=== PATIENT | male | born 1960 | race African-American/Black ===

== ENCOUNTER 2016-05-15 10:51 | Emergency (ER) | payer OTHER ==
[~2016-05-15] VITALS: Ht 182.9 cm; Wt 82.6 kg
[~2016-05-15 10:51] MED LIST: IBUPROFEN600 MG ORAL; KEFLEX500 MG ORAL; NKM; NORCO 5-325 TA1 EACH ORAL
[2016-05-15 11:10] VITALS: BP 122/67
[2016-05-15 11:27] VITALS: BP 122/67
[2016-05-15] MEDS ORDERED: Lidocaine 2% Visc 15ml soln ORAL ONE (12:15)
[2016-05-15] MEDS ORDERED: Mylanta II UD 30ml ORAL ONE (12:15)
[2016-05-15] MEDS ORDERED: Dicyclomine HCl 10mg/5ml oral soln ORAL ONE (12:15)
--- NOTE | 2016-05-15 12:41 | Emergency Room Report ---
History of Present Illness General Chief Complaint: General Complaint Source: Patient Present Illness HPI Pt left before being seen. Allergies: Coded Allergies: PENICILLINS (Unverified Allergy, Unknown, 05/18/15) Nursing Documentation-[facility] Past Medical History: No Stated History Physical Exam Vital Signs Date Time Temp Pulse Resp B/P Pulse Ox O2 Delivery O2 Flow Rate FiO2 05/15/16 11:10 98.1 58 18 122/67 100 Room Air Medical Decision Making PA Attestation Dr. Farley is my supervising Physician whom patient management has been discussed with. ER Course Pt left before being seen. Last Vital Signs Date Time Temp Pulse Resp B/P Pulse Ox O2 Delivery O2 Flow Rate FiO2 05/15/16 11:10 98.1 58 18 122/67 100 Room Air Disposition: LEFT W/OUT BEING SEEN Referrals: [facility] (PCP) Nichelle Hough May 15, 2016 12:41
== END 2016-05-15 13:00 | disposition left against medical advice (07) ==
LOC: EMR 12:23
DX: Z53.21 Procedure and treatment not carried out due to patient leaving prior to being seen by health care provider (principal); Z88.0 Allergy status to penicillin
CPT/HCPCS: 99281

== ENCOUNTER 2016-05-31 14:06 | Emergency (ER) | payer MEDICAID, OTHER ==
[~2016-05-31] VITALS: Ht 182.9 cm; Wt 83.9 kg
[2016-05-31] MEDS ORDERED: MELOXICAM7.5 MG PO (14:24)
[2016-05-31] MEDS ORDERED: NORCO 5-325 TA1 EACH ORAL (14:24)
[2016-05-31] MEDS ORDERED: IBUPROFEN600 MG ORAL (14:24)
[2016-05-31] MEDS ORDERED: GABAPENTIN300 MG ORAL (14:24)
[2016-05-31 14:25] VITALS: BP 128/79
[2016-05-31] MEDS ORDERED: Lidocaine 2% Visc 15ml soln ORAL ONE (14:45)
[2016-05-31] MEDS ORDERED: Mylanta II UD 30ml ORAL ONE (14:45)
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
[2016-05-31] MEDS ORDERED: CYCLOBENZAPRINE10 MG ORAL (15:27)
[2016-05-31] MEDS ORDERED: ZANTAC150 MG ORAL (15:27)
[2016-05-31 15:37] VITALS: BP 121/75
[2016-05-31 15:40] VITALS: BP 121/75
--- NOTE | 2016-05-31 16:12 | Diagnostic Imaging Report ---
Indication: Neck Pain Findings: 3 views of the cervical spine were obtained. Narrowing of the C5-6 disc and endplate spurring noted. Open-mouth view is negative. There is no fracture or malalignment seen. No soft tissue swelling is present. Impression: No acute injury
== END 2016-05-31 15:40 | disposition home or self-care (01) ==
LOC: EMR 14:46
DX: S16.1XXA Strain of muscle, fascia and tendon at neck level, initial encounter (principal); V89.2XXA Person injured in unspecified motor-vehicle accident, traffic, initial encounter; Y93.9 Activity, unspecified; Y92.9 Unspecified place or not applicable; K21.9 Gastro-esophageal reflux disease without esophagitis
CPT/HCPCS: 72040; 99284

== ENCOUNTER 2016-06-14 07:35 | Emergency (ER) | payer MEDICAID ==
[~2016-06-14] VITALS: Ht 180.3 cm; Wt 82.6 kg
[~2016-06-14 07:35] MED LIST changes: +CYCLOBENZAPRINE10 MG ORAL; +GABAPENTIN300 MG ORAL; +MELOXICAM7.5 MG PO; +ZANTAC150 MG ORAL
[2016-06-14] MEDS ORDERED: Mylanta II UD 30ml ORAL ONE (08:00)
[2016-06-14] MEDS ORDERED: Pantoprazole Inj IV ONE (08:00)
--- NOTE | 2016-06-14 08:04 | Emergency Room Report ---
History of Present Illness General Chief Complaint: Chest Pain Source: Patient Present Illness HPI 56YOM walk-in with 2 days epigastric pain radiating to "clavicles" assoc with "right sided swelling" (pointing to right rib cage) and decreased appetite. pain worse with lying down, eating. Patient under considerable stress, states his cousin was just buried yesterday. Known history of suspected GERD but never had endoscopy/colonoscopy. States missed PMD appt recently. Denies assoc nausea/vomiting, diarrhea, fever/chills. Smokes marijuana. +ETOH. Denies drug use. Per EMR, was here mid-May and end may for similar complaints. left before being seen mid-May. End may was given Rx Pepcid, has been taken. No imaging, blood work done at that time. Allergies: Coded Allergies: PENICILLINS (Unverified Allergy, Unknown, 05/18/15) Patient History Past Medical History: none Past Surgical History: none Pertinent Family History: none Social History: Reports: alcohol use, smoking Nursing Documentation-PMH Past Medical History: No Stated History Review of Systems All Other Systems: negative except mentioned in HPI Physical Exam Vital Signs Date Time Temp Pulse Resp B/P Pulse Ox O2 Delivery O2 Flow Rate FiO2 06/14/16 07:36 97.5 76 24 135/83 100 Room Air Sp02 EP Interpretation: reviewed, normal General Appearance: normal inspection, well appearing, alert, GCS 15, non-toxic , mild distress, other - very anxious appearing, writhing on stretcher Head: normocephalic, atraumatic Eyes: bilateral eye EOMI, bilateral eye PERRL ENT: normal ENT inspection, hearing grossly normal, normal voice Neck: normal inspection, full range of motion, supple, no bony tend Respiratory: normal inspection, lungs clear, normal breath sounds, no respiratory distress, no retraction, no wheezing Cardiovascular #1: regular rate, rhythm, no edema Gastrointestinal: normal inspection, normal bowel sounds, soft, no mass, no organomegaly, no guarding, no hernia, no pulsatile mass, no rebound, other - hyperasthesia to palpation of epigastrium Genitourinary: no CVA tenderness Musculoskeletal: normal inspection, back normal, normal range of motion, Bernie' s Sign negative Neurologic: normal inspection, alert, oriented x3, responsive, sap solutions architect III-XII nml as tested, motor strength/tone normal, speech normal Psychiatric: normal inspection, judgement/insight normal, mood/affect normal Skin: normal inspection, normal color, no rash Lymphatic: normal inspection Medical Decision Making Diagnostic Impression: Primary Impression: Epigastric pain Additional Impression: Anxiety ER Course 56YOM with epigastric pain for 2 days. VSS. Afebrile. Dramatic, anxious Hyperasthesia to palpation of abdomen DDx includes gastritis, bj, ACS, MSK PLAN: Ecg, labs, CXR, GI cocktail, reassess EKG Diagnostic Results Rate: normal Rhythm: NSR ST Segments: no acute changes ASA given to the pt in ED: No Rhythm Strip Diag. Results EP Interpretation: yes Rate: 80 Rhythm: NSR, no PVC's, no ectopy Chest X-Ray Diagnostic Results EP Interpretation: Yes Findings: no consolidation, no effusion, no pneumothorax, no acute cardiopulmonary disease Number of Views: 1 Reevaluation Time: 08:30 Last Vital Signs Date Time Temp Pulse Resp B/P Pulse Ox O2 Delivery O2 Flow Rate FiO2 06/14/16 07:55 76 24 Room Air 06/14/16 07:36 97.5 135/83 100 Status: improved Reevaluation Impression Labs: H&H stable. Troponin 0. No leuks. Lipase normal. No other metabolic derangment CXR: No perforation. No PNA. Epigastric pain Likely acid reflux, gerd. No perforation on CXR Serial abd exam benign for focal ttp Unlikely acute bacterial or surgical process requiring additional evaluation or admission Refilled pepcid Advised GI referral for endoscopy there is also a significant anxiety component of patient's presentation given recent life stressors. Will Rx ativan for short-course as needed. Disposition: HOME, SELF-CARE Scripts Methocarbamol* (ROBAXIN-750*) 750 Mg Tablet 750 MG PO TID for muscle pain, #30 TAB 0 Refills Prov: HONG HERNANDEZ M.D. 06/14/16 Lorazepam* (ATIVAN*) 0.5 Mg Tablet 0.5 MG ORAL once daily for anxiety for 7 Days, #7 TAB Prov: HONG HERNANDEZ M.D. 06/14/16 Famotidine (PEPCID) 20 Mg Tablet 20 MG ORAL BID for 30 Days, #60 TAB 0 Refills Prov: HONG HERNANDEZ M.D. 06/14/16 HONG HERNANDEZ M.D. Jun 14, 2016 08:04
[2016-06-14 08:11] LABS: BASOPHILS % (AUTO) 1.3 % (0.0-2.0); EOSINOPHILS % (AUTO) 4.9 % (0.0-3.0); LYMPHOCYTES % (AUTO) 21.3 % (20.0-45.0); MEAN CORPUSCULAR HGB CONC 31.7 G/DL (32.0-36.0); MEAN CORPUSCULAR VOLUME 85 FL (80-99); MEAN PLATELET VOLUME 9.6 FL (6.5-10.1); MONOCYTES % (AUTO) 7.3 % (1.0-10.0); NEUTROPHILS % (AUTO) 65.2 % (45.0-75.0); PLATELET COUNT 221 K/UL (150-450); RED BLOOD COUNT 4.92 M/UL (4.70-6.10); RED CELL DISTRIBUTION WIDTH 13.1 % (11.6-14.8); WHITE BLOOD COUNT 6.6 K/UL (4.8-10.8)
--- NOTE | 2016-06-14 08:19 | Diagnostic Imaging Report ---
Indication: Chest pain Technique: Single portable AP view of the chest. Findings: Comparison: 05/18/15 The bones and extra pulmonary soft tissues, cardiomediastinal silhouette, pulmonary vasculature and parenchyma, and pleural surfaces are unremarkable. IMPRESSION: Negative portable AP chest, unchanged.
[2016-06-14 08:24] LABS: ALANINE AMINOTRANSFERASE 9 U/L (3-41); ALBUMIN/GLOBULIN RATIO 1.4 (1.0-2.7); ANION GAP 10 (5-15); ASPARTATE AMINO TRANSFERASE 17 U/L (5-40); CALCIUM 9.4 mg/dL (8.6-10.2); CARBON DIOXIDE 29 mEQ/L (20-30); CHLORIDE 98 mEQ/L (98-107); CREATININE 1.1 mg/dL (0.7-1.2); GLOMERULAR FILTRATION RATE > 60 mL/min (>60); HEMOLYSIS 2; LIPASE 25 U/L (< 60); POTASSIUM 4.1 mEQ/L (3.4-4.9); SODIUM 137 mEQ/L (135-145); TOTAL PROTEIN 7.7 g/dL (6.6-8.7)
[2016-06-14 08:26] LABS: TROPONIN I < 0.30 ng/mL (<=0.30)
[2016-06-14 08:32] VITALS: BP 135/83
[2016-06-14] MEDS ORDERED: PEPCID20 MG ORAL (08:46)
[2016-06-14] MEDS ORDERED: ATIVAN0.5 MG ORAL (08:46)
[2016-06-14] MEDS ORDERED: ROBAXIN-750750 MG PO (08:46)
[2016-06-14 08:55] VITALS: BP 123/91
--- NOTE | 2016-06-17 13:44 | Cardiology Report ---
APPROVED REPORT EKG Measurement Heart [id number] Normal sinus rhythm Normal ECG
== END 2016-06-14 08:55 | disposition home or self-care (01) ==
LOC: EMR 07:59
DX: R10.13 Epigastric pain (principal); F41.9 Anxiety disorder, unspecified; Z88.0 Allergy status to penicillin; F17.200 Nicotine dependence, unspecified, uncomplicated; F12.10 Cannabis abuse, uncomplicated
CPT/HCPCS: 36415; 71010; 80053; 83690; 84484; 85025; 93005; 96374; 99284; C9113

== ENCOUNTER 2016-06-26 20:37 | Emergency (ER) | payer MEDICAID, OTHER ==
[~2016-06-26] VITALS: Ht 182.9 cm; Wt 77.1 kg
[~2016-06-26 20:37] MED LIST changes: +ATIVAN0.5 MG ORAL; +PEPCID20 MG ORAL; +ROBAXIN-750750 MG PO
[2016-06-26] MEDS ORDERED: Mylanta II UD 30ml ORAL ONE (21:45)
[2016-06-26] MEDS ORDERED: Lidocaine 2% Visc 15ml soln ORAL ONE (21:45)
--- NOTE | 2016-06-26 22:05 | Emergency Room Report ---
History of Present Illness General Chief Complaint: Abdominal Pain Source: Patient Present Illness HPI Is a 56-year-old male with a history of alcohol abuse. He presents with chief complaint of epigastric pain. He said his been ongoing for 2 weeks. Worse with movement. Worse with coughing. Pain a 10 out of 10. No nausea no vomiting. The second complaint is that he has urinary frequency. No discharge. Onset for last couple days. Denies any fever or chills. Denies any discharge. Allergies: Coded Allergies: PENICILLINS (Unverified Allergy, Unknown, 05/18/15) Patient History Past Medical History: see triage record, old chart reviewed Past Surgical History: other Pertinent Family History: none Social History: Reports: alcohol use Immunizations: other Reviewed Nursing Documentation: PMH: Agreed, PSxH: Agreed Review of Systems Eye: Denies: blurred vision, eye pain ENT: Denies: ear pain, nose congestion, throat swelling Respiratory: Denies: cough, shortness of breath Cardiovascular: Denies: chest pain, palpitations Gastrointestinal: Reports: abdominal pain, Denies: diarrhea, nausea, vomiting Musculoskeletal: Denies: back pain, joint pain Skin: Denies: rash Neurological: Denies: headache, numbness Endocrine: Denies: increased thirst, increased urine Hematologic/Lymphatic: Denies: easy bruising All Other Systems: negative except mentioned in HPI Physical Exam Vital Signs Date Time Temp Pulse Resp B/P Pulse Ox O2 Delivery O2 Flow Rate FiO2 06/26/16 20:58 98.1 79 18 146/84 100 vitals normal Sp02 EP Interpretation: reviewed, normal General Appearance: well appearing, no apparent distress, alert Head: normocephalic, atraumatic Eyes: bilateral eye EOMI, bilateral eye PERRL ENT: hearing grossly normal, normal pharynx Neck: full range of motion, supple, no meningismus Respiratory: chest non-tender, lungs clear, normal breath sounds Cardiovascular #1: regular rate, rhythm, no murmur Gastrointestinal: normal bowel sounds, no mass, no organomegaly, no bruit, non- distended, tenderness - epigastric Musculoskeletal: back normal, gait/station normal, normal range of motion Psychiatric: mood/affect normal Skin: warm/dry Medical Decision Making Diagnostic Impression: Primary Impression: Abdominal pain of unknown etiology Additional Impression: Drug-seeking behavior ER Course Patient presents with epigastric abdominal pain. He said he never had any workup for this. Never been to the hospital for this. I pointed out to him that he was here last week and had normal blood work and CT scan. He's been here for the same thing before. He keep asking for IV pain medication. I told patient that we'll hold off and checked his urine for infection first. At this point he got angry and got up and left. He is competent to make that decision. I see no evidence of acute abdomen or obstruction. Last Vital Signs Date Time Temp Pulse Resp B/P Pulse Ox O2 Delivery O2 Flow Rate FiO2 06/26/16 20:58 98.1 79 18 146/84 100 Status: improved Disposition: AGAINST MEDICAL ADVICE Condition: Stable ESTHER MERCER M.D. Jun 26, 2016 22:05
[2016-06-26 22:06] VITALS: BP 143/87
[2016-06-26 22:10] VITALS: BP 143/87
== END 2016-06-26 22:10 | disposition home or self-care (01) ==
LOC: EMR 21:30
DX: R10.13 Epigastric pain (principal); Z76.5 Malingerer [conscious simulation]; F10.10 Alcohol abuse, uncomplicated; Z88.0 Allergy status to penicillin
CPT/HCPCS: 99282

== ENCOUNTER 2016-07-26 04:45 | Emergency (ER) | payer OTHER ==
[~2016-07-26] VITALS: Ht 182.9 cm; Wt 78.9 kg
--- NOTE | 2016-07-26 05:20 | Emergency Room Report ---
History of Present Illness General Chief Complaint: Chest Pain Source: Patient Present Illness HPI Is a 56-year-old male with a history of alcohol abuse. Has been here multiple times for different pain complaint. He tell me that he's only been to the ER once for this pain. He came in complaining of abdominal pain back pain chest pain. His been ongoing for months. No fever or chills. No nausea no vomiting. Pain is 10 out of 10 sharp in nature. Patient keeps saying that he is dying from the pain. He saw who diagnosed him with infection to his back and put him on Bactrim and gabapentin. He said is not helping. Allergies: Coded Allergies: PENICILLINS (Unverified Allergy, Unknown, 05/18/15) Patient History Past Medical History: see triage record, old chart reviewed Past Surgical History: other Pertinent Family History: none Social History: Reports: alcohol use Immunizations: other Reviewed Nursing Documentation: PMH: Agreed, PSxH: Agreed Review of Systems Eye: Denies: blurred vision, eye pain ENT: Denies: ear pain, nose congestion, throat swelling Respiratory: Denies: cough, shortness of breath Cardiovascular: Reports: chest pain, Denies: palpitations Gastrointestinal: Reports: abdominal pain, Denies: diarrhea, nausea, vomiting Musculoskeletal: Reports: back pain, Denies: joint pain Skin: Denies: rash Neurological: Denies: headache, numbness Endocrine: Denies: increased thirst, increased urine Hematologic/Lymphatic: Denies: easy bruising All Other Systems: negative except mentioned in HPI Physical Exam Vital Signs Date Time Temp Pulse Resp B/P Pulse Ox O2 Delivery O2 Flow Rate FiO2 07/26/16 04:49 97.5 81 18 101/54 98 Room Air vitals normal Sp02 EP Interpretation: reviewed, normal General Appearance: well appearing, no apparent distress, alert Head: normocephalic, atraumatic Eyes: bilateral eye EOMI, bilateral eye PERRL ENT: hearing grossly normal, normal pharynx Neck: full range of motion, supple, no meningismus Respiratory: chest non-tender, lungs clear, normal breath sounds Cardiovascular #1: regular rate, rhythm, no murmur Gastrointestinal: normal bowel sounds, no mass, no organomegaly, no bruit, non- distended, tenderness - Diffuse tenderness Musculoskeletal: back normal, gait/station normal, normal range of motion, other - There is a mass measuring abt 5 x 4 cm to the right back And midaxillary line.This along the inior rib/thoracic area dorsally. Is movable. Patient scin when I baly touch him No evidence of fluctuant. This appeared to be a lipoma. Neurologic: alert, oriented x3 Psychiatric: mood/affect normal Skin: warm/dry Medical Decision Making Diagnostic Impression: Primary Impression: Lipoma of back Additional Impression: Lytic bone lesions on xray ER Course Patient presents with diffuse pain. He is very histrionic. No evidence of ACS , PE, dissection or acute abdomen. He's been here multiple times for the same. Patient's CT suspicious for lytic lesion worse him for metastasis. Will initiate further workup. I will sign this patient out to Dr. Kapadia for final disposition. Even though he has pleural effusion breathing is stable. He has no respiratory distress. CT/MRI/US Diagnostic Results CT/MRI/US Diagnostic Results : Imaging Test Ordered: CT chest Impression read by radiologist: CT CHEST Without Contrast: Noncontrast study. Moderate size right pleural effusion and mild right lung base atelectasis. No focal consolidative process or lymphadenopathy. Scattered bilateral lung nodules, indeterminate. Multifocal lytic lesions involving the thoracic spine and sternum, concerning for metastatic/myelomatous process. Also, mixed lytic and sclerotic changes in the left scapula and proximal humerus. Correlate with clinical findings and bone scan. Normal caliber thoracic aorta. Hypodense blood pool in the seen in the setting of anemia. Partially visualized small amount of free fluid in the upper abdomen. Radiologist: Anh Torres M.D. Last Vital Signs Date Time Temp Pulse Resp B/P Pulse Ox O2 Delivery O2 Flow Rate FiO2 07/26/16 05:07 81 18 Room Air 07/26/16 04:49 97.5 101/54 98 Status: improved Disposition: ADMITTED INPATIENT Condition: Serious ESTHER MERCER M.D. July 26, 2016 05:20
[2016-07-26] MEDS ORDERED: Acetaminophen 500mg (ES) tab ORAL ONE ×2 (05:54→06:00)
[2016-07-26] MEDS ORDERED: HYDROmorphone 1mg/ml Carpuject IVP ONE (06:45)
[2016-07-26 06:51] VITALS: BP 98/78
[2016-07-26] MEDS ORDERED: TAMSULOSIN HCL0.4 MG ORAL (06:59)
[2016-07-26] MEDS ORDERED: MELOXICAM15 MG PO (06:59)
[2016-07-26] MEDS ORDERED: SULFAMETHOXAZO480 ML ORAL (06:59)
[2016-07-26 07:03] LABS: BASOPHILS % (AUTO) 1.2 % (0.0-2.0); EOSINOPHILS % (AUTO) 3.3 % (0.0-3.0); LYMPHOCYTES % (AUTO) 24.3 % (20.0-45.0); MEAN CORPUSCULAR HEMOGLOBIN 26.9 PG (27.0-31.0); MEAN CORPUSCULAR HGB CONC 33.1 G/DL (32.0-36.0); MEAN CORPUSCULAR VOLUME 81 FL (80-99); MEAN PLATELET VOLUME 9.3 FL (6.5-10.1); NEUTROPHILS % (AUTO) 64.2 % (45.0-75.0); PLATELET COUNT 187 K/UL (150-450); RED CELL DISTRIBUTION WIDTH 12.7 % (11.6-14.8); WHITE BLOOD COUNT 5.6 K/UL (4.8-10.8)
[2016-07-26 07:14] VITALS: BP 118/69
[2016-07-26 07:16] LABS: ALANINE AMINOTRANSFERASE 9 U/L (3-41); ALBUMIN/GLOBULIN RATIO 1.3 (1.0-2.7); ANION GAP 11 (5-15); ASPARTATE AMINO TRANSFERASE 16 U/L (5-40); CALCIUM 9.6 mg/dL (8.6-10.2); CARBON DIOXIDE 29 mEQ/L (20-30); CHLORIDE 95 mEQ/L (98-107); CREATININE 1.3 mg/dL (0.7-1.2); GLOMERULAR FILTRATION RATE > 60 mL/min (>60); HEMOLYSIS 6; LIPASE 24 U/L (< 60); POTASSIUM 4.8 mEQ/L (3.4-4.9); SODIUM 135 mEQ/L (135-145); TOTAL PROTEIN 7.1 g/dL (6.6-8.7)
[2016-07-26] MEDS ORDERED: VIBRAMYCIN100 MG ORAL (07:41)
[2016-07-26 07:44] LABS: APPEARANCE,URINE CLEAR; KETONES,URINE NEGATIVE (NEGATIVE); LEUKOCYTE ESTERASE ,URINE NEGATIVE (NEGATIVE); NITRITE,URINE NEGATIVE (NEGATIVE); PH,URINE 8 (4.5-8.0); PROTEIN,URINE NEGATIVE (NEGATIVE); UROBILINOGEN,URINE NORMAL MG/DL (0.0-1.0)
[2016-07-26 08:36] LABS: TROPONIN I < 0.30 ng/mL (<=0.30)
[2016-07-26 08:50] VITALS: BP 118/69
--- NOTE | 2016-07-26 09:14 | Diagnostic Imaging Report ---
Clinical Indication: MASS abdominal pain, chest pain, back pain Technique: Spiral acquisitions obtained through the chest. No IV contrast utilized, reason not stated. Multiplanar reconstructions generated. Total dose length product 718 mGycm. CTDIvol(s) 17 mGy. Dose reduction achieved using automated exposure control Comparison: None Findings:There is a small to moderate right pleural effusion. There is trace left pleural fluid. Minimal scarring or atelectasis is seen at the right lateral lung base. There is also some of atelectatic lung in the right inferior azygos esophageal recess. There is a triangular area of pleural thickening along the major fissure on the left, measuring 8 mm in diameter. There is a faint grouping of nodular opacities in the right lung periphery on image 31 series 5. Review of the sagittal reconstructions indicates that these are probably areas of thickening of the minor fissure. Otherwise, no mass, infiltrate, congestion, or nodules demonstrated. There is minimal pericardial thickening. Prominent nodes are seen in the pericardial fat. No mediastinal or hilar adenopathy otherwise. The included portions of the thyroid are unremarkable. No axillary or chest wall mass or adenopathy. There is unusual osteosclerotic appearance and periosteal thickening of the left scapula. There is also some trabecular thickening of the left humeral head There is a fat attenuation mass within the left humeral head which measures 2.8 cm in diameter, incompletely included. There is a 7 mm round osteolytic lesion within the T6 vertebral body, a tiny lesion within the T1 vertebral body, and a 3 mm lesion within the T8 vertebral body. Limited views of the upper abdomen demonstrate what appears to be mixed attenuation free intraperitoneal fluid and a 13 mm hypoattenuating lesion within segment 8 of the liver. There are prominent nodes versus small varices within the lesser sac. There is an osteolytic lesion of the L2 vertebral body. Impression: Small to moderate sized right-sided pleural effusion. Trace left pleural effusion No definite acute pulmonary parenchymal process. 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 These are also demonstrated on subsequent abdomen pelvis CT Unusual sclerotic appearance of the scapula, with extensive periosteal thickening. Findings may represent old Paget's disease. There is also some sclerosis and trabecular prominence of the left humeral head. Fat attenuation lesion within the left humeral head, may represent an intraosseous lipoma. Abdominal findings as described, discussed in detail on report of subsequent abdomen pelvis CT The CT scanner at [facility] is accredited by the [employer] and the scans are performed using protocols designed to limit radiation exposure to as low as reasonably achievable to attain images of sufficient resolution adequate for diagnostic evaluation.
[2016-07-26] MEDS ORDERED: SULFAMETHOXAZO1 EAC2 ORAL (10:41)
--- NOTE | 2016-07-26 12:17 | Diagnostic Imaging Report ---
Clinical Indication: Abdominal pain, back pain chest pain ongoing for months. Cannot attend, sharp in nature Technique: No oral contrast utilized, per emergency room physician request IV administration nonionic contrast. Venous phase spiral acquisition obtained through the abdomen and pelvis. Multiplanar reconstructions were generated. Total dose length product 752 mGycm. CTDIvol(s) 15 mGy. Dose reduction achieved using automated exposure control Comparison: None Findings: There is small amount of free intraperitoneal fluid. Inferior and posterior to the liver lateral to the spleen, and demonstrates fluid attenuation. There is higher attenuation material over the dome of the liver and the spleen, which appears to occupies the peritoneal space. However, on the left its interface with the lower attenuation fluid raises possibility that this could occupy a separate space. No free intraperitoneal air. No loculated fluid collections are evident. The appendix is not clearly identified, but there are no findings to suggest acute appendicitis. There is no evidence of diverticulosis or diverticulitis. There is mild rectal distention by feces. Distal esophagus, stomach, duodenum are unremarkable. Multiple small osteolytic lesions are demonstrated. A similar lesion is seen in the right iliac wing and iliac crest. 7 mm lesion is seen in the posterior left ischium. Multiple lesions are seen in the posterior L5 vertebral body. 15 mm lesion is seen within the L5 spinous process. At least 2 lesions are seen within the L3 vertebral body, one within the L2 vertebral body. There are also degenerative changes of the lumbar spine. Liver demonstrates normal contour. There is a somewhat irregular low-attenuation area in segment 8 anterolaterally at the periphery measuring 18 mm diameter, possibly with some peripheral nodular enhancement. There is a subcentimeter low-attenuation lesion in segment 2 too small to characterize. The gallbladder, bile ducts, pancreas, spleen, adrenals, kidneys are unremarkable. There are questionably small varices medial to the upper gastric fundus. There is equivocal mild bladder wall thickening. No pelvic mass or adenopathy. There is a small right-sided pleural effusion. Minimal scarring or atelectasis is seen in the anterolateral periphery of the right lower lobe. The lung bases are otherwise clear. Prominent nodes are seen in the pericardial fat. Nodular versus serpiginous opacities in the lesser sac medial to the upper gastric fundus may represent nodes or small unopacified varices Impression: Multiple small osteolytic bone lesions, as described. Nonspecific in appearance but suspicious for multiple osseous metastases. Trace ascites. Higher attenuation material over the dome of the liver and spleen probably represents bloody ascites. However, somewhat unusual appearance raises possibility that this represents diffuse tumor, although this is deemed unlikely Irregular 18 mm low-attenuation lesion in segment 8 of the liver. Appearance is suggestive of but not conclusive for a benign hemangioma. Consider dedicated hepatic CT for further evaluation. Borderline borderline lymphadenopathy within the pericardial fat Small right-sided pleural effusion Nodular or serpiginous opacities in the lesser sac, could represent prominent lymph nodes or small varices Too small to characterize subcentimeter low-attenuation lesion in segment 2 of the liver. No further followup necessary Equivocal mild bladder wall thickening. If real could represent cystitis. Correlate with clinical findings Minimal right basilar pulmonary parenchymal atelectasis or scarring Small left scrotal hydrocele The CT scanner at [facility] is accredited by the [employer] and the scans are performed using protocols designed to limit radiation exposure to as low as reasonably achievable to attain images of sufficient r -- esolution adequate for diagnostic evaluation.
== END 2016-07-26 08:54 | disposition other institution (70) ==
LOC: EMR 04:57
DX: D17.1 Benign lipomatous neoplasm of skin and subcutaneous tissue of trunk (principal); M89.9 Disorder of bone, unspecified; R10.9 Unspecified abdominal pain; R07.9 Chest pain, unspecified; J90 Pleural effusion, not elsewhere classified; Z88.0 Allergy status to penicillin
CPT/HCPCS: 36415; 71250; 74177; 80053; 80300; 81003; 83690; 83880; 84484; 85025; 96374; 99284; J1170; Q9967

== ENCOUNTER 2016-09-04 13:11 | Inpatient (IN) | payer MEDICAID, OTHER ==
[~2016-09-04] VITALS: Ht 177.8 cm; Wt 56.7 kg
[~2016-09-04 13:11] MED LIST changes: +MELOXICAM15 MG PO; +SULFAMETHOXAZO1 EAC2 ORAL; +SULFAMETHOXAZO480 ML ORAL; +TAMSULOSIN HCL0.4 MG ORAL; +VIBRAMYCIN100 MG ORAL
[2016-09-04] MEDS ORDERED: Metoclopramide 10mg/2ml Inj IVP ONE (13:30)
[2016-09-04] MEDS ORDERED: DiphenhydrAMINE 50mg/ml Inj IVP ONE (13:30)
[2016-09-04] MEDS ORDERED: Ketorolac 30mg Inj IV ONE (13:30)
--- NOTE | 2016-09-04 13:38 | Emergency Room Report ---
History of Present Illness General Chief Complaint: Abdominal Pain Source: Patient, EMS Present Illness HPI The patient got out of a van and had an increase in his abdominal pain. He felt like he was dying at that time. He's had abdominal pain for 2 months that is fairly severe but today got quite a bit worse. Pain is diffuse, 10/10, slightly better after transport by EMS. Also complaining of R shoulder pain. Uncertain if this pain is radiating or separate pain. No meds taken. Apparent question of GI cancer. Recent evaluation at [facility] with d/c 08/01. He was discharged on MScontin. He doesn't like taking this because is causes severe constipation. He believes a CT was done there. We have a CT from 07/26: Impression: Multiple small osteolytic bone lesions, as described. Nonspecific in appearance but suspicious for multiple osseous metastases. Trace ascites. Higher attenuation material over the dome of the liver and spleen probably represents bloody ascites. However, somewhat unusual appearance raises possibility that this represents diffuse tumor, although this is deemed unlikely Irregular 18 mm low-attenuation lesion in segment 8 of the liver. Appearance is suggestive of but not conclusive for a benign hemangioma. Consider dedicated hepatic CT for further evaluation. Borderline borderline lymphadenopathy within the pericardial fat Small right-sided pleural effusion Nodular or serpiginous opacities in the lesser sac, could represent prominent lymph nodes or small varices Too small to characterize subcentimeter low-attenuation lesion in segment 2 of the liver. No further followup necessary Equivocal mild bladder wall thickening. If real could represent cystitis. Correlate with clinical findings Minimal right basilar pulmonary parenchymal atelectasis or scarring Small left scrotal hydrocele He denies fevers, cough, URI, chest pain, palpitations. He felt slight dizziness when the pain was severe. No dysuria, hematuria. No melena or blood in stool. C/O constipation. He denies being told he has fluid around his lungs. (Above CT noted.) Reviewed discharge papers from [facility] - main focus is abdominal pain/chronic pain. No imaging studies present. Allergies: Coded Allergies: PENICILLINS (Unverified Allergy, Unknown, 05/18/15) Patient History Past Medical History: see triage record, old chart reviewed Social History: Reports: drug use - THC, Denies: smoking Social History Narrative from home Reviewed Nursing Documentation: PMH: Agreed, PSxH: Agreed Nursing Documentation-[facility] Past Medical History: No History, Except For Hx Cancer: Yes - lymph nodes Review of Systems All Other Systems: negative except mentioned in HPI Physical Exam Vital Signs Date Time Temp Pulse Resp B/P Pulse Ox O2 Delivery O2 Flow Rate FiO2 09/04/16 13:04 98.4 92 18 132/82 99 Room Air Sp02 EP Interpretation: reviewed, normal General Appearance: well appearing, GCS 15, mild distress Head: normocephalic Eyes: bilateral eye PERRL, bilateral eye conjunctivae pale, bilateral eye normal inspection - slight pallor ENT: moist mucus membranes Neck: supple Respiratory: lungs clear, normal breath sounds Cardiovascular #1: regular rate, rhythm Cardiovascular #2: 2+ radial (R) Gastrointestinal: normal inspection, no mass, non-distended, no rebound, abnormal bowel sounds - decreased, distended - minimally, guarding - diffuse, tenderness - diffuse Musculoskeletal: back normal, gait/station normal, normal range of motion Neurologic: alert, oriented x3, grossly normal Psychiatric: anxious - with pain Skin: normal inspection, warm/dry Medical Decision Making Diagnostic Impression: Primary Impression: Abdominal pain Qualified Codes: R10.84 - Generalized abdominal pain Additional Impressions: Pleural effusions Shoulder pain - r/o hepatic hemorrhage ER Course Patient presents with abdominal pain. Recent consideration of GI cancer. Worsened pain with broad differential. Not surgical abdomen though diffuse tenderness. Exacerbation chronic pain, SBO, metastatic disease, mesenteric infarct, diverticulitis, UTI amongst others. Evaluation with labs and x-rays. Shoulder pain not clear etiology, concern over liver source. Treatment with Reglan, benadryl and toradol. Labs with normal WBC and H/H. CMP and lipase unremarkable. Pleural effusions significant on plain films. New pleural effusions and abd pain not controlled. Initially refused morphine ( concern over constipation). Admit med. Records requested from [facility].. Concern with shoulder pain of possible liver capsule pathology. May need ultrasound or CT. CT chest abdomen pelvis ordered. Laboratory Tests Test 09/04/16 13:30 09/04/16 15:45 White Blood Count 6.8 K/UL (4.8-10.8) Red Blood Count 4.19 M/UL (4.70-6.10) L Hemoglobin 11.4 G/DL (14.2-18.0) L Hematocrit 34.2 % (42.0-52.0) L Mean Corpuscular Volume 82 FL (80-99) Mean Corpuscular Hemoglobin 27.2 PG (27.0-31.0) Mean Corpuscular Hemoglobin Concent 33.3 G/DL (32.0-36.0) Red Cell Distribution Width 12.1 % (11.6-14.8) Platelet Count 219 K/UL (150-450) Mean Platelet Volume 8.6 FL (6.5-10.1) Neutrophils (%) (Auto) 75.5 % (45.0-75.0) H Lymphocytes (%) (Auto) 12.6 % (20.0-45.0) L Monocytes (%) (Auto) 6.9 % (1.0-10.0) Eosinophils (%) (Auto) 3.9 % (0.0-3.0) H Basophils (%) (Auto) 1.2 % (0.0-2.0) Prothrombin Time 10.7 SEC (9.30-11.50) Prothrombin Time INR 1.0 (0.9-1.1) PTT 31 SEC (23-33) Sodium Level 133 mEQ/L (135-145) L Potassium Level 4.9 mEQ/L (3.4-4.9) Chloride Level 93 mEQ/L (98-107) L Carbon Dioxide Level 30 mEQ/L (20-30) Anion Gap 10 (5-15) Blood Urea Nitrogen 10 mg/dL (7-23) Creatinine 1.0 mg/dL (0.7-1.2) Estimate Glomerular Filtration Rate > 60 mL/min (>60) Glucose Level 107 mg/dL (74-106) H Calcium Level 9.7 mg/dL (8.6-10.2) Total Bilirubin 0.3 mg/dL (0.0-1.2) Aspartate Amino Transferase (AST) 16 U/L (5-40) Alanine Aminotransferase (ALT) 10 U/L (3-41) Alkaline Phosphatase 118 U/L (40-129) Total Creatine Kinase 69 U/L (26-140) Troponin I < 0.30 ng/mL (<=0.30) Total Protein 7.1 g/dL (6.6-8.7) Albumin 3.9 g/dL (3.5-5.2) Globulin 3.2 g/dL Albumin/Globulin Ratio 1.2 (1.0-2.7) Lipase 15 U/L (< 60) Urine Color Pale yellow Urine Appearance Clear Urine pH 7 (4.5-8.0) Urine Specific [place] 1.005 (1.005-1.035) Urine Protein Negative (NEGATIVE) Urine Glucose (UA) Negative (NEGATIVE) Urine Ketones Negative (NEGATIVE) Urine Occult Blood Negative (NEGATIVE) Urine Nitrite Negative (NEGATIVE) Urine Bilirubin Negative (NEGATIVE) Urine Urobilinogen Normal MG/DL (0.0-1.0) Urine Leukocyte Esterase Negative (NEGATIVE) Urine Opiates Screen Negative (NEGATIVE) Urine Barbiturates Screen Negative (NEGATIVE) Phencyclidine (PCP) Screen Negative (NEGATIVE) Urine Amphetamines Screen Negative (NEGATIVE) Urine Benzodiazepines Screen Negative (NEGATIVE) Urine Cocaine Screen Negative (NEGATIVE) Urine Marijuana (THC) Screen Positive (NEGATIVE) H EKG Diagnostic Results Rate: normal Rhythm: NSR ST Segments: no acute changes Rhythm Strip Diag. Results EP Interpretation: yes Rhythm: NSR, no PVC's, no ectopy Chest X-Ray Diagnostic Results Chest X-Ray Diagnostic Results : Chest X-Ray Ordered: Yes # of Views/Limited/Complete: 1 View Indication: Other EP Interpretation: Yes Interpretation: no pneumothorax, other - bilat effusions and inc alvarez bases Impression: Other Interpreting ER Provider: Electronically signed by Paul Franklin MD Other X-Ray Diagnostic Results Other X-Ray Diagnostic Results : # of Views/Limited Vs Complete: 1 View Indication: Pain EP Interpretation: Yes Interpretation: no fractures, nonspecific bowel gas, no sbo Impression: Other Interpreting ER Provider: Electronically signed by Paul Franklin MD Last Vital Signs Date Time Temp Pulse Resp B/P Pulse Ox O2 Delivery O2 Flow Rate FiO2 09/04/16 15:00 97.8 68 18 119/79 97 Room Air Status: improved Disposition: ADMITTED INPATIENT Condition: Serious Paul Franklin M.D. Sep 04, 2016 13:38
[2016-09-04 13:55] LABS: BASOPHILS % (AUTO) 1.2 % (0.0-2.0); EOSINOPHILS % (AUTO) 3.9 % (0.0-3.0); LYMPHOCYTES % (AUTO) 12.6 % (20.0-45.0); MEAN CORPUSCULAR HEMOGLOBIN 27.2 PG (27.0-31.0); MEAN CORPUSCULAR HGB CONC 33.3 G/DL (32.0-36.0); MEAN CORPUSCULAR VOLUME 82 FL (80-99); MEAN PLATELET VOLUME 8.6 FL (6.5-10.1); MONOCYTES % (AUTO) 6.9 % (1.0-10.0); NEUTROPHILS % (AUTO) 75.5 % (45.0-75.0); PLATELET COUNT 219 K/UL (150-450); RED BLOOD COUNT 4.19 M/UL (4.70-6.10); RED CELL DISTRIBUTION WIDTH 12.1 % (11.6-14.8); WHITE BLOOD COUNT 6.8 K/UL (4.8-10.8)
[2016-09-04 14:14] LABS: PROTHROMBIN TIME 10.7 SEC (9.30-11.50)
--- NOTE | 2016-09-04 14:17 | Diagnostic Imaging Report ---
Indication: Abdominal pain Comparison: None Single view of the abdomen obtained Findings: Bowel gas pattern is nonspecific. No mass, ectopic calcifications, or abnormal gas collections are identified. The bones are unremarkable. The visualized part of the lung bases show blunting of the costophrenic angles likely pleural effusions. Impression: No acute findings Suspected bilateral pleural effusions.
[2016-09-04 14:27] LABS: ANION GAP 10 (5-15); CARBON DIOXIDE 30 mEQ/L (20-30); CHLORIDE 93 mEQ/L (98-107); GLOMERULAR FILTRATION RATE > 60 mL/min (>60); POTASSIUM 4.9 mEQ/L (3.4-4.9); SODIUM 133 mEQ/L (135-145); TROPONIN I < 0.30 ng/mL (<=0.30)
[2016-09-04 14:28] LABS: ALANINE AMINOTRANSFERASE 10 U/L (3-41); ALBUMIN/GLOBULIN RATIO 1.2 (1.0-2.7); ASPARTATE AMINO TRANSFERASE 16 U/L (5-40); CALCIUM 9.7 mg/dL (8.6-10.2); HEMOLYSIS 7; LIPASE 15 U/L (< 60); TOTAL PROTEIN 7.1 g/dL (6.6-8.7)
[2016-09-04 15:00] VITALS: BP 119/79
--- NOTE | 2016-09-04 15:17 | Diagnostic Imaging Report ---
Indication: Dyspnea Comparison: 06/14/16 A single view chest radiograph was obtained. Findings: Groundglass opacities obscuring the diaphragm and blunting the costophrenic angles noted bilaterally. Heart size is relatively normal. There is suspected interstitial edema tip in interstitial densities and peribronchial cuffing. The bones are unremarkable. Impression: Bilateral pleural effusions. Suspected interstitial edema
[2016-09-04 16:00] LABS: KETONES,URINE NEGATIVE (NEGATIVE); LEUKOCYTE ESTERASE ,URINE NEGATIVE (NEGATIVE); NITRITE,URINE NEGATIVE (NEGATIVE); PH,URINE 7 (4.5-8.0); PROTEIN,URINE NEGATIVE (NEGATIVE); UROBILINOGEN,URINE NORMAL MG/DL (0.0-1.0)
[2016-09-04] MEDS ORDERED: Morphine Sulfate 4mg/ml Inj IVP ONE ×3 (16:00→21:00)
[2016-09-04 16:01] LABS: APPEARANCE,URINE CLEAR
[2016-09-04] MEDS ORDERED: MS CONTIN30 MG ORAL (20:24)
[2016-09-04] MEDS ORDERED: NORCO 10-325 T1 EACH ORAL (20:28)
[2016-09-04 20:51] VITALS: BP 114/79
[2016-09-04 21:30] VITALS: BP 116/82
[2016-09-04] MEDS ORDERED: Norco 10mg/325mg tab ORAL PRN (22:00)
[2016-09-05] VITALS: BP 124/70
[2016-09-05 04:00] VITALS: BP 129/76
[2016-09-05] MEDS ORDERED: Norco 10mg/325mg tab ORAL PRN (04:00)
[2016-09-05] MEDS: oxyCODONE 5mg IR tab ORAL PRN ×2 (05:01→11:15)
[2016-09-05 08:55] VITALS: BP 123/84
[2016-09-05] MEDS ORDERED: Tamsulosin 0.4mg cap ORAL SCH (09:00)
[2016-09-05] MEDS ORDERED: Meloxicam 15 MG TAB ORAL SCH (09:00)
[2016-09-05 09:11] VITALS: BP 123/84
--- NOTE | 2016-09-05 09:22 | Diagnostic Imaging Report ---
Indication: Chest pain Technique: Continuous helical transaxial imaging of the chest was obtained from the thoracic inlet to the upper abdomen during rapid intravenous contrast administration. Arterial phase of enhancement obtained. Coronal 2-D reformats were also obtained and maximum intensity projection images in multiple planes. Study obtained in a Siemens sensation [address] Total Dose length Product (DLP): [address] Dose Index Volume (CTDIvol): 13, 38, 20 mGy Comparison: None Findings: Pulmonary artery is well opacified. There is no evidence of pulmonary embolus. There is a moderate right pleural effusion and a small left pleural effusion demonstrated. Trace pericardial fluid noted. Ascites noted. No evidence of ureter dissection or aneurysm. Streaky densities are present the lung bases probably atelectasis. Pneumonia is not entirely excludable especially at the left lung base. Please correlate clinically. Impression: No evidence of pulmonary embolus, aortic dissection or aneurysm. Moderate right pleural effusion and small left pleural effusion. Basilar atelectasis and/or pneumonia. Trace pericardial effusion Please refer to the separately dictated CT abdomen pelvis. Dr. Maria has communicated the preliminary results to the Emergency Department. There are no significant discrepancies. The CT scanner at [facility] is accredited by the [employer] and the scans are performed using dose optimization techniques as appropriate to a performed exam including Automatic Exposure control.
--- NOTE | 2016-09-05 10:31 | Diagnostic Imaging Report ---
Indication: Abdominal pain Technique: Continuous helical transaxial imaging of the abdomen and pelvis was obtained from the lung bases to the pubic symphysis. No intravenous contrast was administered. Coronal 2-D reformats were also obtained. Total Dose length Product (DLP): [address] Dose Index Volume (CTDIvol): None 12.2, 0.2 mGy Comparison: 07/26/16 CT Findings: There is excreted contrast material within the collecting system of both kidneys and the urinary bladder from a previously administered IV contrast for a CTA chest done at 19:09. No IV contrast was administered for the current study. There is mild ascites present. There is no hydronephrosis. There are 2 ureters emanating from the left kidney. This may be a bifid system as only one of the ureters is visualized distally i.e. the ureters may join. This is not for certain. Presence of IV contrast precludes present in the detection of small stones. There are multiple lytic lesions within the bones in several places within the lumbar spine involving both the vertebra and posterior elements. Findings consistent with metastatic neoplasm versus multiple myeloma. Please correlate clinically. The current exam is limited given the absence of IV contrast. There is some contrast retention within solid organs but most of the contrast has washed out. There is moderate fecal retention in the colon. No oral contrast was given as such the stomach and small bowel are not well evaluated. There is no evidence of severe dilatation or bowel obstruction. The prostate is enlarged and has approximate measurements of 5.3 x 5.0 x 5.0 cm. Impression: Very limited study due to absence of IV contrast material and oral contrast. Suggestion of mild ascites. Prostate enlargement. Multiple lytic bony lesions. Metastatic neoplasm versus multiple myeloma. Duplicated left collecting system. The ureters may join midcourse (bifid). This is not for certain. The CT scanner at [facility] is accredited by the [employer] and the scans are performed using dose optimization techniques as appropriate to a performed exam including Automatic Exposure control.
[2016-09-05] MEDS: Cyclobenzaprine 10mg Tab ORAL SCH ×3 (11:12→18:00)
[2016-09-05 12:43] VITALS: BP 148/94
--- NOTE | 2016-09-05 16:15 | History and Physical Report ---
DATE OF ADMISSION: 09/04/2016 HISTORY OF PRESENT ILLNESS: This is a 56-year-old male with history of right chest wall and midabdominal mass, which is previously being biopsied at an outside hospital, but per records, the tissue sample was inadequate and diagnosis was unmade. The patient has a history of Paget disease of the shoulder. He has been seen by [facility], Dr. Madrigal and has been given oxycodone. He does not have a definitive diagnosis. The patient underwent a CT of the abdomen and chest in July of this year, which shows there is a right effusion. There is a labral lesion as well as osteolytic lesion of the L2 vertebral body. There are also other multiple osteolytic lesions as well as findings of Paget disease of the left scapula. The patient underwent a CT of the abdomen and pelvis yesterday, which shows that there are multiple lytic bony lesions, possibly multiple myeloma. He also had a CT of the chest, which shows clear lung petty and no pulmonary embolism. The patient reports abdominal pain as well as severe pain. PAST MEDICAL HISTORY: As discussed above. MEDICATIONS: He states he is taking oxycodone 50 mg daily. ALLERGIES: To penicillin. SOCIAL HISTORY: Admits to smoking marijuana. Denies tobacco usage. Denies alcohol usage. REVIEW OF SYSTEMS: Denies any headaches, hematemesis, melena, hematochezia, night sweats or weight loss. PHYSICAL EXAMINATION: GENERAL: Reveals a 56-year-old male. VITAL SIGNS: Blood pressure 130/80, heart rate 84, respirations 18. HEENT: Unremarkable. CHEST: Shows clear breath sounds bilaterally with decreased breath sounds on the right base. ABDOMEN: Soft. There is fullness in the epigastric. There is also palpable baseball size lesion, which is hard and tender adherent to the right chest wall. Abdomen otherwise unremarkable. NEUROLOGIC: Nonfocal. LABORATORY AND DIAGNOSTIC DATA: Lab testing shows normal hemoglobin 11.4, otherwise normal CBC. BMP, sodium 133, glucose 107 and calcium is 9.7. Coagulation studies are negative. Urinalysis is negative. Toxicology is positive for marijuana. IMPRESSION: 1. Multiple osteolytic bony lesions. 2. Large adherent right chest wall mass. 3. Right pleural effusion. DISCUSSION: Admitted to the Hospital. We will provide pain medication, relieved with oral thoracentesis. The patient will like to be transferred to Hospital once a bed is available. Sean Wilson M.D. DR: ALANA JOB#: [id number] CC:
--- NOTE | 2016-09-05 16:38 | Diagnostic Imaging Report ---
Indication: Status post thoracentesis Comparison: 09/04/16 A single view chest radiograph was obtained. Findings: There is no pneumothorax following the thoracentesis which was performed on the right side. Small residual effusion is noted at the right lung base. Impression: No pneumothorax following right thoracentesis
[2016-09-05] MEDS ORDERED: GABAPENTIN600 MG ORAL (19:28)
[2016-09-05] MEDS ORDERED: NORCO 10/3251 EA ORAL (19:29)
[2016-09-05] MEDS ORDERED: OXYCODONE HCL5 MG ORAL (19:32)
--- NOTE | 2016-09-06 09:28 | Diagnostic Imaging Report ---
Indications: Pleural effusion Technique: Ultrasound used to localize optimal puncture site. Sterile prepping and draping of the right lower chest performed. Local anesthesia with 1% lidocaine. Dermatotomy made. Puncture of the pleural space using thoracentesis needle. Stylet removed. Catheter placed to vacuum bottle suction. Fluid was aspirated. Patient tolerated procedure well, without immediate complication. Findings: Followup sonography demonstrates complete resolution of pleural fluid. Followup chest x-ray is pending. Impression: Successful ultrasound-guided right thoracentesis, yielding 1.5 liters of fluid
--- NOTE | 2016-09-06 21:31 | Discharge Summary ---
Discharge Summary Hospital Course Date of Admission Sep 04, 2016 at 18:10 Date of Discharge Sep 05, 2016 at 19:48 Admitting Diagnosis abdominal pain/pleural effusions ZOEY Stockton is a 56 year old male who was admitted on Sep 04, 2016 at 18:10 for Abdominal Pain/Pleural Effusion Hospital Course [id number] Discharge Discharge Disposition Patient was discharged to Acute Care Facility(02) Discharge Diagnoses: Lakesha Tapia NP Sep 06, 2016 21:31
--- NOTE | 2016-09-07 05:00 | Discharge Summary 2 SIG ---
DATE OF ADMISSION: 09/04/2016 DATE OF DISCHARGE: 09/05/2016 BRIEF HOSPITAL COURSE: The patient is a 56-year-old male with history of right chest wall and mid abdominal mass, which has previously been biopsied at an outside hospital with unmade diagnosis. The patient has a history of Paget's disease on the shoulder and has been seen by [facility] oncologist, Dr. Madrigal and was given oxycodone. He underwent CT of the abdomen and chest in July of this year, which showed right effusion. There was osteolytic lesion on the L2 vertebral body and other multiple osteolytic lesions as well as findings of Paget of the left scapula. He underwent CT of the abdomen and pelvis the day prior admission, which showed multiple lytic bony lesions, possibly multiple myeloma. He also had a chest CT, which showed clear lung petty with no pulmonary emboli. He was admitted to medical floor and was given pain management and underwent a thoracentesis of the right lung yielding 1.5 liters of fluid. X-ray post thoracentesis was negative for pneumothorax. The patient was then discharged to [facility]. FINAL DIAGNOSES: 1. Multiple osteolytic bony lesions. 2. Large adherent right chest wall mass. 3. Right pleural effusion status post thoracentesis. Sean Wilson M.D. I have been assigned to dictate discharge summary on this account and I was not involved in the patient's management. Lakesha Tapia N.P. DR: SUNNY JOB#: [id number] CC:
== END 2016-09-05 19:48 | disposition short-term general hospital (02) | DRG 143 ==
LOC: EDBD 13:11 → EMR 13:31 → 4W 18:10 → EDBEDREQ 18:35
PROC: 0W9930Z Drainage of Right Pleural Cavity with Drainage Device, Percutaneous Approach (ICD-10-PCS; principal; 2016-09-05)
DX: J90 Pleural effusion, not elsewhere classified (principal); C90.00 Multiple myeloma not having achieved remission; N43.3 Hydrocele, unspecified; R22.2 Localized swelling, mass and lump, trunk; M88.812 Osteitis deformans of left shoulder; M89.58 Osteolysis, other site; F12.90 Cannabis use, unspecified, uncomplicated
CPT/HCPCS: 36415; 71010; 71275; 74000; 74176; 76942; 80053; 80300; 81003; 82550; 83690; 84484; 85025; 85610; 85730; 93005; J2405; J2765

== ENCOUNTER 2016-10-01 21:59 | Emergency (ER) | payer MEDICAID ==
[~2016-10-01] VITALS: Ht 182.9 cm; Wt 68.0 kg
[~2016-10-01 21:59] MED LIST changes: +GABAPENTIN600 MG ORAL; +MS CONTIN30 MG ORAL; +NORCO 10-325 T1 EACH ORAL; +NORCO 10/3251 EA ORAL; +OXYCODONE HCL5 MG ORAL
[2016-10-01 22:00] VITALS: BP 148/92
[2016-10-01 22:50] LABS: BASOPHILS % (AUTO) 0.7 % (0.0-2.0); EOSINOPHILS % (AUTO) 5.5 % (0.0-3.0); LYMPHOCYTES % (AUTO) 12.2 % (20.0-45.0); MEAN CORPUSCULAR HEMOGLOBIN 26.8 PG (27.0-31.0); MEAN CORPUSCULAR HGB CONC 32.3 G/DL (32.0-36.0); MEAN CORPUSCULAR VOLUME 83 FL (80-99); MEAN PLATELET VOLUME 9.2 FL (6.5-10.1); MONOCYTES % (AUTO) 5.5 % (1.0-10.0); NEUTROPHILS % (AUTO) 76.1 % (45.0-75.0); PLATELET COUNT 231 K/UL (150-450); RED BLOOD COUNT 4.01 M/UL (4.70-6.10); RED CELL DISTRIBUTION WIDTH 12.9 % (11.6-14.8); WHITE BLOOD COUNT 9.8 K/UL (4.8-10.8)
[2016-10-01 22:55] LABS: INR 1.1 (0.9-1.1); PROTHROMBIN TIME 11.9 SEC (9.30-11.50)
[2016-10-01 23:03] LABS: TROPONIN I < 0.30 ng/mL (<=0.30)
[2016-10-01 23:04] LABS: ALANINE AMINOTRANSFERASE 12 U/L (3-41); ALBUMIN/GLOBULIN RATIO 1.1 (1.0-2.7); ANION GAP 12 (5-15); ASPARTATE AMINO TRANSFERASE 25 U/L (5-40); CALCIUM 9.2 mg/dL (8.6-10.2); CARBON DIOXIDE 27 mEQ/L (20-30); CHLORIDE 102 mEQ/L (98-107); GLOMERULAR FILTRATION RATE > 60 mL/min (>60); HEMOLYSIS 2; POTASSIUM 4.5 mEQ/L (3.4-4.9); SODIUM 141 mEQ/L (135-145); TOTAL PROTEIN 6.8 g/dL (6.6-8.7)
--- NOTE | 2016-10-01 23:28 | Emergency Room Report ---
History of Present Illness General Chief Complaint: Pain Source: Patient Present Illness HPI Patient is a 56 male who presented after increased shortness of breath. Patient prior history of Paget's disease. Patient any fever. He reportedly had been getting radiation treatment. Patient gradual onset of symptoms. Patient associated intermittent abdominal pain.Patient had been taking pain medications will muscle relaxants. Patient stated that he had previous pleural effusions. Allergies: Coded Allergies: MORPHINE (Unverified Allergy, Unknown, 10/01/16) PENICILLINS (Unverified Allergy, Unknown, 05/18/15) Patient History Past Medical History: see triage record Reviewed Nursing Documentation: PMH: Agreed, PSxH: Agreed Nursing Documentation-PMH Hx Cardiac Problems: No Hx Cancer: Yes - ABDOMINAL Review of Systems All Other Systems: negative except mentioned in HPI Physical Exam Vital Signs Date Time Temp Pulse Resp B/P Pulse Ox O2 Delivery O2 Flow Rate FiO2 10/01/16 21:55 97.2 102 17 148/92 98 Room Air Sp02 EP Interpretation: reviewed, normal General Appearance: normal inspection, well appearing, no apparent distress, alert, GCS 15 Head: atraumatic ENT: normal ENT inspection, hearing grossly normal, normal voice Neck: normal inspection, full range of motion, supple, no bony tend Respiratory: normal inspection, lungs clear, normal breath sounds, no respiratory distress, no retraction, no wheezing Cardiovascular #1: regular rate, rhythm, no edema Gastrointestinal: normal inspection, normal bowel sounds, non tender, soft, no guarding, no hernia Genitourinary: no CVA tenderness Musculoskeletal: normal inspection, back normal, normal range of motion Neurologic: normal inspection, alert, responsive, speech normal Psychiatric: normal inspection, judgement/insight normal, mood/affect normal Skin: normal inspection, normal color, no rash Medical Decision Making Diagnostic Impression: Primary Impression: Pleural effusion Additional Impression: Malignancy ER Course Patient presented for shortness of breath. Patient presented for shortness of breath. Differential included but was not limited to anemia, pneumonia, pneumothorax, myocardial infarction, pericardial effusion, congestive heart failure, acidosis. X-ray imaging of the chest one view interpreted by me showed bilateral pleural effusions with a right-sided or left-sided . patient was noted to have adequate oxygen saturation.The patient was discussed with Dr. Samayoa at [facility] Labs Test 10/01/16 22:30 White Blood Count 9.8 K/UL (4.8-10.8) Red Blood Count 4.01 M/UL (4.70-6.10) Hemoglobin 10.8 G/DL (14.2-18.0) Hematocrit 33.4 % (42.0-52.0) Mean Corpuscular Volume 83 FL (80-99) Mean Corpuscular Hemoglobin 26.8 PG (27.0-31.0) Mean Corpuscular Hemoglobin Concent 32.3 G/DL (32.0-36.0) Red Cell Distribution Width 12.9 % (11.6-14.8) Platelet Count 231 K/UL (150-450) Mean Platelet Volume 9.2 FL (6.5-10.1) Neutrophils (%) (Auto) 76.1 % (45.0-75.0) Lymphocytes (%) (Auto) 12.2 % (20.0-45.0) Monocytes (%) (Auto) 5.5 % (1.0-10.0) Eosinophils (%) (Auto) 5.5 % (0.0-3.0) Basophils (%) (Auto) 0.7 % (0.0-2.0) Prothrombin Time 11.9 SEC (9.30-11.50) Prothromb Time International Ratio 1.1 (0.9-1.1) Activated Partial Thromboplast Time 32 SEC (23-33) Sodium Level 141 mEQ/L (135-145) Potassium Level 4.5 mEQ/L (3.4-4.9) Chloride Level 102 mEQ/L (98-107) Carbon Dioxide Level 27 mEQ/L (20-30) Anion Gap 12 (5-15) Blood Urea Nitrogen 14 mg/dL (7-23) Creatinine 1.0 mg/dL (0.7-1.2) Estimat Glomerular Filtration Rate > 60 mL/min (>60) Glucose Level 116 mg/dL (74-106) Calcium Level 9.2 mg/dL (8.6-10.2) Total Bilirubin < 0.2 mg/dL (0.0-1.2) Aspartate Amino Transf (AST/SGOT) 25 U/L (5-40) Alanine Aminotransferase (ALT/SGPT) 12 U/L (3-41) Alkaline Phosphatase 148 U/L (40-129) Troponin I < 0.30 ng/mL (<=0.30) Total Protein 6.8 g/dL (6.6-8.7) Albumin 3.7 g/dL (3.5-5.2) Globulin 3.1 g/dL Albumin/Globulin Ratio 1.1 (1.0-2.7) Last Vital Signs Date Time Temp Pulse Resp B/P Pulse Ox O2 Delivery O2 Flow Rate FiO2 10/01/16 21:55 97.2 102 17 148/92 98 Room Air Status: unchanged Disposition: XFER SHT-TRM HOSP Condition: Serious Referrals: [facility] (PCP) Gabriele Kapadia Oct 01, 2016 23:28
[2016-10-01 23:30] VITALS: BP 136/76
[2016-10-02 00:36] VITALS: BP 129/60
[2016-10-02] MEDS ORDERED: HYDROmorphone 1mg/ml Carpuject IVP ONE (00:45)
[2016-10-02 01:14] VITALS: BP 129/60
--- NOTE | 2016-10-02 11:10 | Diagnostic Imaging Report ---
Indication: SOB Technique: One view of the chest Comparison: 09/05/2016 Findings: Markedly increased right pleural effusion, now massive, occupying over 50% of the right hemithorax. Left pleural effusion is smaller than the right, but still large and increased from the previous study. The heart borders are obscured. There is mild interstitial congestion. Impression: Massive right and large left pleural effusions, increased from 09/05/2016 Mild interstitial congestion
--- NOTE | 2016-10-02 16:01 | Cardiology Report ---
APPROVED REPORT EKG Measurement Heart [id number] [id number] Sinus tachycardia Nonspecific T wave abnormality Abnormal ECG
== END 2016-10-02 01:15 | disposition short-term general hospital (02) ==
LOC: EDBD 21:59 → EMR 22:06
DX: J90 Pleural effusion, not elsewhere classified (principal); Z85.89 Personal history of malignant neoplasm of other organs and systems; Z88.0 Allergy status to penicillin; Z88.6 Allergy status to analgesic agent
CPT/HCPCS: 36415; 71010; 80053; 84484; 85025; 85610; 85730; 93005; 96360; 96374; 96375; 99285; J1170; J1940